=== PATIENT | male | born 1950 ===

== ENCOUNTER → 2024-03-08 14:56 | Outpatient (REF) | payer SELFPAY ==
[2024-03-08 19:17] LABS: % Basophils 0.7 % (0-2); % Eosinophils 3.8 % (0-6); % Immature Granulocytes 0.5 % (0-0.5); % Lymphocytes 39.3 % (20.5-51.1); % Monocytes 12.3 % (1.7-9.3); % Neutrophils 43.4 % (42.2-75.2); Absolute Eosinophils 0.2 10^3/uL (0-0.7); Absolute Lymphocytes 1.7 10^3/uL (1.2-3.4); Absolute Monocytes 0.5 10^3/uL (0.1-0.6); Absolute Neutrophils 1.8 10^3/uL (1.4-6.5); Hematocrit 33.5 % (39.0-52.0); Hemoglobin 10.9 g/dL (13.0-18.0); Mean Corp Hgb Conc. 32.5 g/dL (33.0-37.0); Mean Corpuscular Volume 98.2 fL (80.0-94.0); Mean Platelet Volume 10.2 fL (7.4-10.4); Nucleated Red Blood Cells % 0 % (-); Platelet Count 124 10^3/uL (130-400); Red Blood Cell Count 3.41 10^6/uL (4.70-6.10); Red Cell Dist. Width 15.1 % (11.5-14.5); White Blood Cell Count 4.2 10^3/uL (4.8-10.8)
[2024-03-08 19:25] LABS: Blood Urea Nitrogen 21 mg/dl (9-20); Calcium 8.5 mg/dl (8.4-10.2); Carbon Dioxide 29 mmol/L (22-30); Chloride 106 mmol/L (98-107); Glucose 76 mg/dl (70-99); HDL Cholesterol 41 mg/dl; LDL Cholesterol, Calculated 62 mg/dl; Sodium 138 mmol/L (135-145); Total Cholesterol 113 mg/dl (50-199); Triglyceride 52 mg/dl (10-149); Very Low Density Lipoprotein 10 mg/dl (0-30); eGFR > 60.00
[2024-03-08 19:33] LABS: Potassium 4.1 mmol/L (3.5-5.1)
[2024-03-08 19:42] LABS: Free T4 1.02 ng/dl (0.78-2.19); Vitamin D, 25-OH*** 30.1 ng/mL (30-80)
[2024-03-08 19:56] LABS: TSH 2.88 uIU/ml (0.47-4.68)
[2024-03-08 20:15] LABS: Vitamin B12 556 pg/ml (239-931)
[2024-03-09 08:20] LABS: Glycohemoglobin (HgbA1c) 4.8 % (4.0-5.6)
== END ==
LOC: OLABSOL 14:56
PROVIDERS: ATTENDING PHYSICIAN Nurse Practitioner Adult Health
DX: E55.9 Vitamin D deficiency, unspecified (principal); D55.9 Anemia due to enzyme disorder, unspecified; D11.9 Benign neoplasm of major salivary gland, unspecified; E03.9 Hypothyroidism, unspecified; D64.9 Anemia, unspecified; R94.4 Abnormal results of kidney function studies; E78.5 Hyperlipidemia, unspecified
CPT/HCPCS: 36415; 80048; 80061; 82306; 82607; 83036; 84439; 84443; 85025

== ENCOUNTER 2024-05-18 05:01 | Emergency (ER) | payer MEDICARE, SELFPAY ==
[2024-05-18 05:03] VITALS: BP 124/67; BMI 21.2
--- NOTE | 2024-05-18 06:35 | ED.GENMED ---
History of Present Illness
General
Chief Complaint: Fall
Source: patient and ambulance crew
Time Seen by Provider: 05/18/24 06:30
History of Present Illness
History of Present Illness:
74-year-old male presents to the emergency room from [facility] where he fell getting out of bed. He has an abrasion to the top of his head. Patient offers no complaints though he carries a diagnosis of dementia and does not appear to
recall the events of the morning.
Phy Exam
Physical Exam
Physical Exam:
General: Awake, Alert, Oriented to person. No acute distress.
Vitals: unremarkable
Head: Abrasion to the top of his scalp, no bleeding
Eyes: Pupils equal, EOMI
Throat: Airway intact, no exudates
Neck: Trachea midline, no midline tenderness to palpation
Lungs: Clear and equal b/l
Heart: Regular rate, no murmurs
Abd: Soft, Nontender, No pulsatile mass
Neuro: Nonfocal
Skin: Warm, dry, no rash
Extremities: pulses equal b/l, no edema, range of motion intact in all 4 extremities
Course
Orders/Labs/Results
Orders:
Orders
05/18/24 05:08
CT Head W/o Iv Contrast Urgent
Comment:
Reason For Exam: fall head strike
Vital Signs
Initial and Last Documented VS:
Initial Vital Signs
Temp Pulse Resp BP Pulse Ox
98.2 F 63 16 124/67 98
05/18/24 05:03 05/18/24 05:03 05/18/24 05:03 05/18/24 05:03 05/18/24 05:03
Last Documented Vital Signs
Temp Pulse Resp BP Pulse Ox
98.2 F 68 16 128/77 97
05/18/24 05:03 05/18/24 08:02 05/18/24 08:02 05/18/24 08:02 05/18/24 08:02
MDM/Problems Addressed
Differential Diagnosis Includes:
Contusion, abrasion, subdural
MDM/Problems Addressed:
CT shows no acute intracranial abnormalities. Patient appears stable and can be discharged back to his facility.
*Radiology
Radiology exam reviewed: radiology read reviewed (No acute abnormalities on vision report)
*Pulse Oximetry
Patient hypoxic: no
*Critical Care Note
Total Time (30-74mins, 75-104mins- exclusive of procedures): Not Applicable
ED Attending Note
-
Portions of this chart may have been created with voice recognition software.� Occasional wrong word or��sound alike� substitutions may have occurred due to the inherent limitations of voice recognition software.
Discharge Plan
Departure
Patient Disposition: Assisted Living
Date of Disposition: 05/18/24
Time of Disposition: 06:37
Condition: Good
Discharge Problem:
Head injury, Abrasion of scalp
Instructions: Head Injury in Adults (DC), Preventing falls in adults
Prescriptions:
No Action
valproic acid 500 mg Capsule,Delayed Release(Dr/Ec)
500 mg PO BID
Referrals:
Anders Woody, DO [Family Provider] -
Interventions
Interventions:
*Risk Screen - Suicide Last Done: 05/18/24 05:03
*General Assessment Last Done: 05/18/24 05:03
*Neglect/Abuse Screening Last Done: 05/18/24 05:03
*ED- Fall Risk Assessment Last Done: 05/18/24 06:59
*ED COVID-19 Vaccine History Last Done: 05/18/24 06:58
*Nursing Disposition Last Done: 05/18/24 06:59
ED-Musculoskeletal Assessment Last Done: 05/18/24 06:59
ED- Neurological Assessment Last Done: 05/18/24 06:58
ED-Skin Assessment Last Done: 05/18/24 06:59
Discharge Date and Time
Discharge Date/Time: 05/18/24 10:28
Print Language: IVORIAN
[2024-05-18 08:02] VITALS: BP 128/77
== END 2024-05-18 10:28 ==
LOC: EMR 05:01
PROVIDERS: EMERGENCY PHYSICIAN Emergency Medicine; FAMILY PHYSICIAN Internal Medicine
DX: S00.01XA Abrasion of scalp, initial encounter (principal); W06.XXXA Fall from bed, initial encounter; F03.90 Unspecified dementia, unspecified severity, without behavioral disturbance, psychotic disturbance, mood disturbance, and anxiety
CPT/HCPCS: 99284; 70450

== ENCOUNTER → 2024-11-03 11:46 | Outpatient (REF) | payer MEDICARE, SELFPAY ==
[2024-11-03 12:59] LABS: Hematocrit 31.3 % (39.0-52.0); Hemoglobin 10.7 g/dL (13.0-18.0); Mean Corp Hgb Conc. 34.2 g/dL (33.0-37.0); Mean Corpuscular Volume 94.8 fL (80.0-94.0); Nucleated Red Blood Cells % 0 % (-); Platelet Count 112 10^3/uL (130-400); Red Cell Dist. Width 12.5 % (11.5-14.5)
[2024-11-03 13:28] LABS: ALT (SGPT) 20 U/L (0-50); AST (SGOT) 23 U/L (17-59); Albumin 3.0 g/dl (3.5-5.0); Alkaline Phosphatase 46 U/L (38-126); Blood Urea Nitrogen 18 mg/dl (9-20); Calcium 9.1 mg/dl (8.4-10.2); Carbon Dioxide 27 mmol/L (22-30); Chloride 110 mmol/L (98-107); Glucose 79 mg/dl (70-99); HDL Cholesterol 45 mg/dl; LDL Cholesterol, Calculated 72 mg/dl; Magnesium 2.1 mg/dl (1.6-2.3); Potassium 4.0 mmol/L (3.5-5.1); Sodium 141 mmol/L (135-145); Total Protein 5.5 g/dl (6.3-8.2); Very Low Density Lipoprotein 12 mg/dl (0-30); eGFR > 60.00
[2024-11-03 13:29] LABS: Depakane 48.0 ug/ml (50.0-120.0)
[2024-11-03 13:57] LABS: TSH 3.29 uIU/ml (0.47-4.68)
[2024-11-03 14:22] LABS: Glycohemoglobin (HgbA1c) 4.7 % (4.0-5.6)
[2024-11-04 18:10] LABS: Urine Character Clear (Clear)
[2024-11-04 18:38] LABS: Urine Squamous Cell 0-2 /LPF (Few)
[2024-11-04 18:39] LABS: Urine Red Blood Cell 0-2 /HPF (0-2); Urine White Cell 0-2 /HPF (0-5)
== END ==
LOC: OLABSOL 11:46
PROVIDERS: ATTENDING PHYSICIAN Nurse Practitioner Adult Health
DX: R94.6 Abnormal results of thyroid function studies (principal); R89.2 Abnormal level of other drugs, medicaments and biological substances in specimens from other organs, systems and tissues; Z13.220 Encounter for screening for lipoid disorders; R73.09 Other abnormal glucose; Z13.228 Encounter for screening for other metabolic disorders; Z79.899 Other long term (current) drug therapy; N39.0 Urinary tract infection, site not specified
CPT/HCPCS: 36415; 80053; 80061; 80164; 81003; 81015; 83036; 83735; 84439; 84443; 85025; 87086

== ENCOUNTER 2025-02-08 16:45 | Inpatient (IN) | payer MEDICARE, SELFPAY ==
[2025-02-08] VITALS (9 sets, daily range): BP systolic 102–153; BP diastolic 54–76; BMI 21.6; BMI 21.4
--- NOTE | 2025-02-08 10:54 | ED.GENMED ---
History of Present Illness
General
Chief Complaint: Weakness
Time Seen by Provider: 02/08/25 10:44
History of Present Illness
History of Present Illness:
Patient presents to the emergency department with weakness, possible leaning to the right. Patient has a history of dementia and is not able to provide any reliable history. Per report, patient was seen around 8 AM and was leaning to his right.
He is able to adjust for this. He denies any pain anywhere. There is reports of a possible fall last night.
Phy Exam
Physical Exam
Physical Exam:
GENERAL APPEARANCE: NAD, well developed/ well nourished
EYES lids/conjunctiva normal
EARS/NOSE/THROAT Mucous membranes moist, uvula midline without oral pharyngeal erythema, exudate or swelling
HEAD/NECK normocephalic atraumatic, neck is supple. No cervical spine tenderness
RESPIRATORY respiratory effort normal, speaks in full sentences, no accessory muscle use. Lungs clear to auscultation without rhonchi, wheezes, rales
CARDIAC Regular rate and rhythm, no edema.
ABDOMINAL Soft, ND/NT.
MUSCLES/EXTREMITIES No abnormal range of motion, no swelling.
SKIN Warm, pink and dry. No rashes
NEUROLOGICAL oriented x 1, cranial nerves II through XII intact, 5 out of 5 strength in all extremities, sensation intact to light touch throughout, no dysmetria or ataxia.
Course
Orders/Labs/Results
Orders:
Orders
02/08/25 10:53
Electrocardiogram (*1) Urgent
Reason for Study: Other
Other Reason for Exam: sepsis
02/08/25 10:54
CT Head W/o Iv Contrast Urgent
Comment:
Reason For Exam: weakness
02/08/25 11:02
COVID-19 Antigen Urgent
Source: Nasal Swab
Comment: COVID AG
Complete Blood Count/With Diff Urgent
Comprehensive Metabolic Panel Urgent
Troponin I Urgent
Valproic Acid Level [Depakane] Urgent
Influenza A+B Rapid Molecular Urgent
BARBARA Source: Nasal Swab
Specimen Description:
02/08/25 11:48
PTT Routine
Prothrombin Time Routine
Urinalysis Reflex To Culture Urgent
Date Specimen was Collected: 02/08/25
Time Specimen was Collected: 11:26
Urine Microscopic Reflex Cult Urgent
Urine Culture Urgent
BARBARA Source: U
Specimen Description:
Date Specimen was Collected: 02/08/25
Time Specimen was Collected: 11:26
02/08/25 13:50
Portable Chest Xray [CR Chest Portable - 1 View] Urgent
Comment:
Reason For Exam: weakness
Reason Study Needs to be Portable: Unable to Transport
02/08/25 14:17
CefTRIAXone [Rocephin] 1,000 mg IV NOW STA
02/08/25 15:04
Admit/Transfer Patient As Directed
Co-Sign Provider:
Level of Care: Inpatient admission
Assign to:: Telemetry
Physician / Group: Hospitalist
Diagnosis: Weakness with fall
Reason for Telemetry: Syncope
Date to Stop Telemetry: 02/10/25
Time to Stop Telemetry: 11:00
Reason for Hospitalization: Weakness with fall
Expected length of stay greater than two midnights?: Yes
ELOS- Estimated Length of Stay in days: 3
I certify the patient meets the requirements for IP care: Yes
02/08/25 15:38
PRN Pain Medication Management As Directed
May give lesser potent ordered pain med per pt: Yes
preference::
Protocol:: Medication orders for pain may be administered in a
manner that supports deferring to patient preference
when the pt is:
- Requesting an ordered lesser potent pain medication.
Least to most potent pain medications are defined
as: acetaminophen < NSAID < tramadol < opioids
(morphine, oxycodone, hydromorphone).
- Requesting a lesser dose of the same medication IF
ORDERED.
- Requesting a less intrusive route of administration
if both routes are prescribed by the provider (PO <
IV).
02/08/25 15:42
Code Status As Directed
Resuscitation Status: Full Code
Physician note:: Patient's code status was NOT documented on the paper work that came with him in the ED. I
made multiple attempts (over 2 hours) to contact the [place] facility, the patient's son to
ascertain code status. However, I was unable to determine what is the patient's code status.
For that reason, we will designate full code and then reattempt to contact the facility and
update or confirm the code status accordingly.
02/10/25 11:00
DC Protocol for Telemetry ONCE
Abnormal Lab Results
02/08/25 02/08/25
11:02 11:48
WBC 15.8 H 10^3/uL
(4.8-10.8)
RBC 3.73 L 10^6/uL
(4.70-6.10)
Hgb 12.3 L g/dL
(13.0-18.0)
Hct 36.6 L %
(39.0-52.0)
MCV 98.1 H fL
(80.0-94.0)
MCH 33.0 H pg
(27.0-31.0)
Abs Immat Gran (auto) 0.1 H 10^3/uL
(0-0.05)
Absolute Neuts (auto) 13.0 H 10^3/uL
(1.4-6.5)
Absolute Lymphs (auto) 1.0 L 10^3/uL
(1.2-3.4)
Absolute Monos (auto) 1.8 H 10^3/uL
(0.1-0.6)
Neutrophils % 82.0 H %
(42.2-75.2)
Lymphocytes % 6.1 L %
(20.5-51.1)
Monocytes % 11.2 H %
(1.7-9.3)
Glucose 150 H mg/dl
(70-99)
Urine Ketones 1+ A
(Negative)
Ur Occult Blood Reflex 1+ A
(Negative)
Leukocyte Esterase Rfl 1+ A
(Negative)
Urine Bacteria (Reflex) Few A
(Negative)
Urine Albumin (Reflex) 2+ A
(Neg - Trace)
02/08/25 11:02
02/08/25 11:02
Vital Signs
Initial and Last Documented VS:
Initial Vital Signs
Temp Pulse Resp BP Pulse Ox
98.6 F 79 18 132/64 98
02/08/25 10:05 02/08/25 10:05 02/08/25 10:05 02/08/25 10:05 02/08/25 10:05
Last Documented Vital Signs
Temp Pulse Resp BP Pulse Ox
97.3 F 71 23 127/65 100
02/08/25 11:03 02/08/25 17:49 02/08/25 17:49 02/08/25 17:49 02/08/25 14:59
*Pulse Oximetry
SaO2: 98
Oxygen Mode of Delivery: Room air
Patient hypoxic: no
*Critical Care Note
Total Time (30-74mins, 75-104mins- exclusive of procedures): Not Applicable
ED Attending Note
ED Attending Note
ED Attending Note:
CT head negative for acute process. His NIH stroke score is 0 at this time, . Unknown last known well so patient not TNK candidate. Lab work showing leukocytosis, possible urinary source. Will check chest x-ray as well and treat with ceftriaxone.
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
WBC 15.8, afebrile
urine with leuks -- covering with CTX for possible UTI
CXR without infiltrate
admit for weakness, possible UTI, possible Stroke
-
Portions of this chart may have been created with voice recognition software.� Occasional wrong word or��sound alike� substitutions may have occurred due to the inherent limitations of voice recognition software.
Discharge Plan
Departure
Patient Disposition: Admit
Date of Disposition: 02/08/25
Time of Disposition: 14:19
Presentation/result/management discussed w/ accepting MD/DO: Hospitalist
Discharge Problem:
Weakness, Acute UTI
Interventions
Interventions:
*Risk Screen - Suicide Last Done: 02/08/25 10:05
*General Assessment Last Done: 02/08/25 10:05
*Neglect/Abuse Screening Last Done: 02/08/25 10:05
*ED- Fall Risk Assessment Last Done: 02/08/25 11:11
*ED COVID-19 Vaccine History Last Done: 02/08/25 10:05
*ED Influenza Vaccine History Last Done: 02/08/25 10:05
ED- Cardiac Assessment Last Done: 02/08/25 11:11
ED- Neurological Assessment Last Done: 02/08/25 11:11
ED- Pulmonary Assessment Last Done: 02/08/25 11:11
--- NOTE | 2025-02-08 10:59 | PHANOTE ---
MED REC NOTE- PATIENT MISSING INTERMEDIATE ORDER, CALLED FOR MEDICATION LIST TO BE FAXED OVER
[2025-02-08 11:21] LABS: Hematocrit 36.6 % (39.0-52.0); Hemoglobin 12.3 g/dL (13.0-18.0); Mean Corp Hgb Conc. 33.6 g/dL (33.0-37.0); Mean Corpuscular Volume 98.1 fL (80.0-94.0); Nucleated Red Blood Cells % 0 % (-); Platelet Count 140 10^3/uL (130-400); Red Cell Dist. Width 12.5 % (11.5-14.5)
[2025-02-08 11:32] LABS: ALT (SGPT) 20 U/L (0-50); AST (SGOT) 29 U/L (17-59); Albumin 3.7 g/dl (3.5-5.0); Alkaline Phosphatase 51 U/L (38-126); Blood Urea Nitrogen 14 mg/dl (9-20); Calcium 8.8 mg/dl (8.4-10.2); Carbon Dioxide 28 mmol/L (22-30); Chloride 104 mmol/L (98-107); Estimated Creatinine Clearance 77 ml/min; Glucose 150 mg/dl (70-99); Potassium 3.7 mmol/L (3.5-5.1); Sodium 138 mmol/L (135-145); Total Protein 6.5 g/dl (6.3-8.2); eGFR > 60.00
[2025-02-08 11:38] LABS: Troponin I < 0.012 ng/ml
[2025-02-08 11:43] LABS: COVID-19 Antigen Negative (Negative)
[2025-02-08 11:46] LABS: Depakane 60.5 ug/ml (50.0-120.0)
[2025-02-08 12:07] LABS: APTT 26.3 Sec (23.4-35.0); INR 1.09; PT 14.4 Sec (11.4-14.6)
[2025-02-08 12:36] LABS: Urine Character Clear (Clear)
[2025-02-08 12:56] LABS: Urine Red Blood Cell 0-2 /HPF (0-2); Urine Squamous Cell 0-2 /LPF (Few)
[2025-02-08] MEDS: ROCEPHIN 1000 MG IV (14:37)
--- NOTE | 2025-02-08 14:50 | W.PN.UPDATE ---
Update Note
Progress Note Update
74-year-old male with dementia, mood disorder, sleep disturbance that is presenting to the ED today from his assisted living center after being noticed by staff to have a rightward lean. History significantly limited by the patient's advanced
dementia. Was noted to be leaning to his right by staff at his living facility and around 8 AM this morning, possible fall yesterday evening. Patient denies pain in the ED. AFVSS on arrival. Labs with WBC 15.8 with neutrophil 82%, hemoglobin
12.3, glucose 150. Urinalysis with few bacteria, negative pyuria, no nitrites or leukocyte esterase. VPA level 60.5 mcg/mL below the threshold for toxicity. CT head showed moderate atrophy diffusely the stable from previous scans and moderate
leukomalacia of the left frontal lobe that is progressed from previous. CT without acute findings such as infarct or ICH. CXR without acute findings on my prelim read, final read pending. ECG with NSR and no ischemic findings, normal QTc. Viral
respiratory panel negative. Was given 1 dose of IV ceftriaxone in the ED after urine culture was obtained.
AO x 1-2, NAD, well-nourished. Benign cardiopulmonary and abdomen exam. No suprapubic discomfort or flank tenderness/CVA tenderness. No edema, no JVD, palpable pulses, no carotid bruits. Skin warm and dry without rash or jaundice. MMS and
sensation intact, CN grossly intact.
#Rightward lean. Differentials include vertiginous process, CVA, B12 deficiency, MSK injury, deconditioning. NIHSS low at this time. CT unremarkable. No obvious FND outside of his leaning, lower suspicion for CVA. Will obtain MRI brain without
contrast for completeness. Order PT/OT and consider vestibular therapy treatments. Monitor NIHSS and neurochecks. Check A1c, B12, and lipid panel for completeness. Monitor on telemetry for now. Consider neurology consult
#Leukocytosis. Unclear etiology, lower suspicion for infectious process at this time with negative UA and clear CXR. Cannot rule out reactive process with possible fall versus aspiration event with his advanced dementia. Received 1 dose of IV
ceftriaxone in the ED. Will hold off on further antibiotics for now and trend CBC and temperature curve. Aspiration precautions.
#Fall at facility. Was found on ground this morning with presumed fall. Renal function stable, will check CK level for completeness. Plan for IV fluids
Diet -- Regular
DVT -- Lovenox
Code -- To be confirmed with facility, Full code pending confirmation
I have personally evaluated the patient at the bedside in the ED. I will be admitting Wali Angela to telemetry. He he is at high risk for worsening morbidity due to potential cerebral ischemia and will require further testing with MRI and
intensive monitoring of his neurologic status as well as potential readjustment of his antilipid/antiplatelet therapy. I have discussed this case with the ED attending. I reviewed this case with the resident and agree with all documentation unless
otherwise specified.
Please see residents formal H&P for more detail once available
--- NOTE | 2025-02-08 16:41 | HPS.HSE ---
Family Physician
-
Family Physician: INTERVIEWE UNKNOWN - PT NOT
Chief Complaint
-
weakness, rightward lean, fall
History of Present Illness
74 yo M PMH Alzheimer's dementia, EtOH use disorder, Insomnia who is believed to have weakness (leaning to the right) and a presumed fall (from yesterday evening). Last known well is not known.
He was found leaning to his right at around 8am this morning. The patient is unable to provide a reliable history, and is coming from [facility] living.
When he presented to the ED,
VS: 98.6, BP 132/64, 98% on room air
Labs n/f WBC 15.8, Hgb 12.3
Electrolytes within normal limits: Na 138, K 3.7, Cr 0.8, BG 150
EKG NSR
Troponin < 0.012
Valproic acid level 60.5
UA noted few bacteria, 1+ leukocyte esterase
CT head noncontrast: no acute intracranial process but showed moderate atrophy and moderate malacia
CXR: unremarkable
Urine cultures are pending, and received ceftriaxone in the ED for a presumed UTI.
Medical History
Past Medical History
Past Medical History: Reports Dementia (Alzheimer's), Psychiatric (EtOH substance disorder) and Other (Insomnia; per chart, disorders of bilirubin metabolism)
Past Surgical History: Reports Other (Malignant melanoma (per chart))
Social History
Unable to obtain full social history at this time due to: Dementia
Family History
Family History: Unable to Obtain
Allergies / Home Medications
Allergies reflects when Allergies were last updated in [facility].
Home Medications with original date entered in [facility]
Allergy/Medication List:
Allergies
Allergy/AdvReac Type Severity Reaction Status Date / Time
No Known Allergies Allergy Verified 02/08/25 10:08
Home Medications
dimethicone 5 % topical cream 1 applic topical BID INCONTIENCE CARE 02/08/25
divalproex 500 mg tablet,delayed release 500 mg PO BID 02/08/25
melatonin 3 mg tablet 6 mg PO HS Sleep 02/08/25
olanzapine 2.5 mg tablet 2.5 mg PO HS Mental Health/Anxiety 02/08/25
Review of Systems
-
Unable to obtain full review of systems at this time due to: Dementia
Physical Exam
Vital Signs
Vital Signs
Temp Pulse Resp BP Pulse Ox
97.3 F 95 15 102/54 100
02/08/25 11:03 02/08/25 11:17 02/08/25 11:17 02/08/25 14:58 02/08/25 14:59
Physical Exam
General: Conversant
HEENT: NormoCephalic and Anicteric
Respiratory: Clear
Cardiac: Other (no murmurs on my exam)
GI: Soft, Non Tender, Non Distended and Normal Bowel Sounds
Musculoskeletal: Other (trace peripheral edema bilaterally)
Skin: Warm and Dry
Neuro: Awake, Alert and Other (AOx1, able to move 4 extremities and follow basic commands, conversant.)
Psych: Calm
Laboratory Results
-
02/08/25 11:02
02/08/25 11:02
Laboratory Results
PT 14.4 Sec (11.4-14.6) 02/08/25 11:48
INR 1.09 02/08/25 11:48
APTT 26.3 Sec (23.4-35.0) 02/08/25 11:48
Total Bilirubin 0.7 mg/dl (0.2-1.3) 02/08/25 11:02
AST 29 U/L (17-59) 02/08/25 11:02
ALT 20 U/L (0-50) 02/08/25 11:02
Alkaline Phosphatase 51 U/L (38-126) 02/08/25 11:02
Troponin I < 0.012 ng/ml 02/08/25 11:02
CT Head noncontrast 02/08/2025
IMPRESSION:
No CT evidence for acute intracranial abnormality.
Moderate atrophy which appears diffuse, and stable.
Moderate leukomalacia. There appears to be progression of leukomalacia in the left frontal lobe white matter compared to previous examination.
No convincing CT evidence for a focal area of acute to subacute infarction. If there remains high clinical concern for acute to subacute infarction and further imaging evaluation is desired, consideration for MRI, if there are no contraindications
CXR 02/08/2025
IMPRESSION:
No evidence of active cardiopulmonary disease.
UA: 1+ leukocyte esterase; 1+ occult blood, 6-10 WBC; 2+ albumin; few bacteria
Impression/Plan
-
In summary, 74 yo 74 yo M PMH Alzheimer's dementia, EtOH use disorder, Insomnia who is believed to have weakness and a presumed fall.
Weakness vs. leaning to the right vs. presyncope
- unclear etiology, and unknown HPI
- able to move all 4 extremities and follows basic commands
- ddx: CVA/TIA, musculoskeletal weakness, arrhythmia, dehydration among others
- cardiac exam benign, EKG NSR, no chart reported hx of an arrhythmia
- VS stable
Plan:
- will admit to telemetry
- although CT head noncontrast negative; and does not appear to be a CVA, MRI brain to evaluate for any process
- orthostatic vitals
- lipid panel, A1c
- consult PT/OT
- attempt to contact family for collateral
- attempt to contact facility for more information
Fall
- reported to have fallen yesterday evening
- Add on - CK to evaluate for rhabdomyolysis
Leukocytosis
- WBC 15.8, afebrile, and UA is not convincing for an infection
- CXR does not suggest respiratory infectious process
- likely reactive
Plan:
- f/u urine culture
- monitor CBC and VS
Code status: Full Code
Additional details regarding code status: patient's code status was NOT documented on the paper work he presented with. Over the course of 1.5-2 hours, I made multiple attempts to contact the son, Killian (@ [phone]) and multiple attempts to
reach someone at [facility] (@ [phone]) who could help. The son did not flower picker my calls, and the agents at [facility] were not able to connect me the appropriate personnel who could determine the patient's code status. For these reasons, a
full code is designated for now while we confirm.
DVTppx: enoxaparin
Diet: regular
--- NOTE | 2025-02-08 20:18 | PTCARENOTE ---
Pt received from ED to rm 424. Pt w/ 1:[address]
[2025-02-08] MEDS: NSS 1000 IV (21:36)
[2025-02-08] MEDS: LOVENOX 40 MG SC (21:36)
[2025-02-08] MEDS: MELATONIN 6 MG PO (21:37)
[2025-02-08] MEDS: DEPAKOTE (12 HR RELEASE) 500 MG PO (21:37)
[2025-02-08] MEDS: ZYPREXA 2.5 MG PO (21:37)
[2025-02-09] VITALS (8 sets, daily range): BP systolic 114–151; BP diastolic 55–83; PULSE 61–76
--- NOTE | 2025-02-09 01:44 | PTCARENOTE ---
Pt has been sleeping quietly without incident. 1:1 observation discontinued at this time. Bed alarm in place.
--- NOTE | 2025-02-09 07:17 | W.PN.HOSP.TC ---
Today's Communication/Plan
-
- MRI brain
- likely discharge today or tomorrow (CM aware)
Assessment / Plan
Assessment / Plan
In summary, 74 yo 74 yo M PMH Alzheimer's dementia, EtOH use disorder, Insomnia who is believed to have weakness and a presumed fall.
Weakness vs. leaning to the right vs. presyncope
- unclear etiology, and unknown HPI
- able to move all 4 extremities and follows basic commands
- ddx: CVA/TIA, musculoskeletal weakness, arrhythmia, dehydration among others
- cardiac exam benign, EKG NSR, no chart reported hx of an arrhythmia
- VS stable
Plan:
- will admit to telemetry
- although CT head noncontrast negative; and does not appear to be a CVA, MRI brain to evaluate for any process (today)
- lipid panel normal
- B12 normal
- A1c normal
- consulted PT/OT
- orthostatics negative
Elevated creatine kinase
Fall
- reported to have fallen yesterday evening
- CK 249 -> 187
- Fluids were started at 50cc/hr yesterday because doubtful on whether he would know to eat
- AST within normal limits; does not suggest rhabdomyolysis
- possible attributed to mechanical fall suggesting some degree of muscle trauma
- continue fluids
Leukocytosis
- WBC 4.9, resolved; afebrile
- likely reactive
Plan:
- f/u urine culture
Code status: Full Code
Additional details regarding code status: patient's code status was NOT documented on the paper work he presented with. Over the course of 1.5-2 hours, I made multiple attempts to contact the son, Killian (@ [phone]) and multiple attempts to
reach someone at [facility] (@ [phone]) who could help. The son did not belt picker my calls, and the agents at [facility] were not able to connect me the appropriate personnel who could determine the patient's code status. For these reasons, a
full code is designated for now while we confirm.
DVTppx: enoxaparin
Diet: regular
Anticipated Discharge: Within 24 hours
Subjective/Interval History
-
Date of Service: February 09, 2025
CK 249 from add on labs
nurse reports that patient is incontinent?
started on NS 50cc/hr fluids because unclear if he's eating
Objective Data
-
Labs:
Laboratory Results
02/09/25
06:53
WBC Pending
Hgb Pending
Hct Pending
Plt Count Pending
Sodium Pending
Potassium Pending
Chloride Pending
Carbon Dioxide Pending
BUN Pending
Creatinine Pending
Glucose Pending
Calcium Pending
WBC 8.3
CK 249 -> 182
otehr electrolytes within normal limits
A1c 4.7
b12 602
lipidpanel
LDL 71; total cholesterol 136
triglycerides 50
Vital Signs:
Vital Signs
Temp Pulse Resp BP Pulse Ox
97.8 F 69 18 151/83 100
02/09/25 03:06 02/09/25 03:06 02/09/25 03:06 02/09/25 03:06 02/09/25 03:06
Review of Systems
-
Unable to obtain full review of systems at this time due to: Dementia
Physical Exam
-
General: Conversant
HEENT: Normocephalic
Respiratory: Clear to Auscultation
Cardiac: Other (no murmurs on my exam)
GI: Nontender
Musculoskeletal: No Edema
Neuro: Awake and Alert
Psych: Calm
[2025-02-09 07:31] LABS: Hematocrit 32.3 % (39.0-52.0); Hemoglobin 10.9 g/dL (13.0-18.0); Mean Corp Hgb Conc. 33.7 g/dL (33.0-37.0); Mean Corpuscular Volume 95.6 fL (80.0-94.0); Platelet Count 112 10^3/uL (130-400); Red Cell Dist. Width 12.5 % (11.5-14.5)
[2025-02-09 08:02] LABS: Blood Urea Nitrogen 11 mg/dl (9-20); Calcium 8.5 mg/dl (8.4-10.2); Carbon Dioxide 30 mmol/L (22-30); Chloride 107 mmol/L (98-107); Estimated Creatinine Clearance 87 ml/min; Glucose 78 mg/dl (70-99); HDL Cholesterol 55 mg/dl; LDL Cholesterol, Calculated 71 mg/dl; Potassium 3.7 mmol/L (3.5-5.1); Sodium 139 mmol/L (135-145); Very Low Density Lipoprotein 10 mg/dl (0-30); eGFR > 60.00
[2025-02-09 08:22] LABS: Glycohemoglobin (HgbA1c) 4.7 % (4.0-5.9)
[2025-02-09 08:55] LABS: Vitamin B12 602 pg/ml (239-931)
[2025-02-09] MEDS: DEPAKOTE (12 HR RELEASE) 500 MG PO ×2 (09:43→19:42)
--- NOTE | 2025-02-09 11:26 | CM ---
Patient w/ dementia, spoke w/ Corina/Ullink tech at [facility]. Initial assessment completed. Patient is a 74 yo M PMH Alzheimer's dementia, EtOH use disorder, Insomnia who is believed to have weakness (leaning to the right) and a presumed fall (from
yesterday evening).
Patient resides at [facility] in memory care. Patient is independent w/ mobility, no device required. Per Corina, patient is total care for ADLs. Patient is AOx1 at baseline. No therapy at this time.
PCP: Samia Hodges
Pharmacy: [facility]
PT- home PT recommendation
Per alan LAST d/c today or tomorrow pending MRI. Updated Corina
Cristóbal referral completed in [facility]
Cristóbal PT

Plan: Return to [facility] w/ Cristóbal
[2025-02-09] MEDS: LOVENOX 40 MG SC (18:02)
[2025-02-09] MEDS: NSS 1000 IV (18:05)
[2025-02-09] MEDS: MELATONIN 6 MG PO (19:42)
[2025-02-09] MEDS: ZYPREXA 2.5 MG PO (19:42)
[2025-02-10 03:05] VITALS: BP 101/55
[2025-02-10 06:12] LABS: Hematocrit 30.9 % (39.0-52.0); Hemoglobin 10.7 g/dL (13.0-18.0); Mean Corp Hgb Conc. 34.6 g/dL (33.0-37.0); Mean Corpuscular Volume 97.2 fL (80.0-94.0); Platelet Count 118 10^3/uL (130-400); Red Cell Dist. Width 12.3 % (11.5-14.5)
[2025-02-10 06:36] LABS: Blood Urea Nitrogen 15 mg/dl (9-20); Calcium 8.4 mg/dl (8.4-10.2); Carbon Dioxide 31 mmol/L (22-30); Chloride 107 mmol/L (98-107); Estimated Creatinine Clearance 76 ml/min; Glucose 77 mg/dl (70-99); Potassium 3.8 mmol/L (3.5-5.1); Sodium 138 mmol/L (135-145); eGFR > 60.00
[2025-02-10 07:00] VITALS: BP 124/65
--- NOTE | 2025-02-10 07:16 | W.PN.HOSP.TC ---
Today's Communication/Plan
-
discharge today
Assessment / Plan
Assessment / Plan
In summary, 74 yo 74 yo M PMH Alzheimer's dementia, EtOH use disorder, Insomnia who is believed to have weakness and a presumed fall.
Weakness vs. leaning to the right vs. presyncope
- unclear etiology, and unknown HPI
- able to move all 4 extremities and follows basic commands
- ddx: CVA/TIA, musculoskeletal weakness, arrhythmia, dehydration among others
- cardiac exam benign, EKG NSR, no chart reported hx of an arrhythmia
- VS stable
Plan:
- will admit to telemetry
- lipid panel normal
- B12 normal
- A1c normal
- consulted PT/OT
- orthostatics negative
- MRI brain showed Alzheimer's disease, negative for infarct.
- okay for discharge today
Elevated creatine kinase
Fall
- reported to have fallen yesterday evening
- CK 249 -> 187
- Fluids were started at 50cc/hr yesterday because doubtful on whether he would know to eat
- AST within normal limits; does not suggest rhabdomyolysis
- possible attributed to mechanical fall suggesting some degree of muscle trauma
- continue fluids
Leukocytosis
- WBC 5.6 resolved; afebrile
- likely reactive
- urine culture no growth
Code status: Full Code
I spoke with [facility] on 02/10/2025 at approximately 11:50AM, and they confirmed that this patient is Full Code.
DVTppx: enoxaparin
Diet: regular
Anticipated Discharge: Today
Subjective/Interval History
-
Date of Service: February 10, 2025
sleeping, nurse reports that he was quite agitated overnight
completed abdominal x-ray and MRI brain this morning
Objective Data
-
Labs:
Laboratory Results
02/10/25
05:37
WBC 5.6
Hgb 10.7 L
Hct 30.9 L
Plt Count 118 L
Sodium 138
Potassium 3.8
Chloride 107
Carbon Dioxide 31 H
BUN 15
Creatinine 0.8
Glucose 77
Calcium 8.4
Abdominal x-ray 02/10/2025
IMPRESSION:
1. No radiographic evidence for metal foreign body in abdomen or pelvis.
2. No radiographic evidence for bowel obstruction.
3. Cholelithiasis.
Brain MRI complete 02/10/2025
IMPRESSION:
1. Moderate to severe bilateral temporal lobe volume loss consistent with ALZHEIMER'S DEMENTIA.
2. SEVERE WHITE MATTER LEUKOARAIOSIS in the frontal and parietal lobes.
3. No MRI evidence for acute infarct or intracranial hemorrhage.
4. Severe facet joint arthrosis at C3/C4.
Vital Signs:
Vital Signs
Temp Pulse Resp BP Pulse Ox
97.4 F 55 18 101/55 98
02/10/25 03:05 02/10/25 03:05 02/10/25 03:05 02/10/25 03:05 02/10/25 03:05
bradycardic
I&O
02/09/25 02/10/25 02/11/25
06:59 06:59 06:59
Intake Total 420 / 420
Output Total 125 / 125
Balance 295 / 295
Review of Systems
-
Unable to obtain full review of systems at this time due to: Dementia
Physical Exam
-
General: Conversant
HEENT: Normocephalic
Respiratory: Clear to Auscultation
Cardiac: Other (no murmurs on my exam)
GI: Nontender
Musculoskeletal: No Edema
Neuro: Other (sleeping but easily arousable)
Psych: Calm
[2025-02-10] MEDS: NSS IV (07:37)
[2025-02-10] MEDS: DEPAKOTE (12 HR RELEASE) 500 MG PO (07:37)
--- NOTE | 2025-02-10 10:27 | CM ---
Chart reviewed. MRI negative
Per PA, patient is medically stable to return to [facility]
CM placed call to [facility], was unable to speak w/ a med tech and nursing is not there. Left message w/ [employer] tech, however, CM spoke w/ a med tech yesterday informing of potential d/c today.
Attempted call to patient's son, Killian, left message
Patient will need ambulance transport
[facility] will follow for PT
[facility]
Report: [phone]

[facility]

Plan: Return to [facility] w/ [facility]
--- NOTE | 2025-02-10 11:55 | W.DCSUMMARY ---
Documented by User: Marlon Trivedi MD, Resident 02/10/25 12:21
Discharge Summary
Discharge Data
Date of Admission: 02/08/25
Date of Discharge: 02/10/25
-
Pending Results: No
Hospital Course
Discharging Physician : Dr. Ramón Riddle; Dr. Marlon Trivedi
Disposition : SNF
Principal Discharge diagnosis : Weakness, rightward lean
Chronic Discharge diagnosis : Dementia (Alzheimer's), Psychiatric (EtOH substance disorder) and Other (Insomnia; per chart, disorders of bilirubin metabolism); Malignant melanoma (per chart)
Hospital Course :
74 yo M PMH Alzheimer's dementia, EtOH use disorder, Insomnia who is believed to have weakness (leaning to the right) and a presumed fall on 02/07 or 02/08/2025. Last known well is not known. He was found leaning to his right at around 8am morning
of 02/08/2025. The patient is unable to provide a reliable history, and is coming from [facility]. In the ED, CT Head noncontrast was negative for bleed. CXR was unremarkable. MRI brain was negative for infarct but showed severe white
matter leukoaraiosis and volume loss c/w Alzheimer's dementia. He received an abdominal x-ray prior to the scan for MRI clearance.
The following problems were addressed during this admission:
Rightward lean/weakness
- unclear etiology, and unknown HPI
- able to move all 4 extremities and follows basic commands
- ddx: CVA/TIA, musculoskeletal weakness, arrhythmia, dehydration among others
- cardiac exam benign, EKG NSR, no chart reported hx of an arrhythmia
- VS stable
Plan:
- Labs were largely unremarkable: lipid panel, B12, A1c all within normal limits
- Orthostatics were negative
- MRI showed Alzheimer's dementia and severe white matter leukoaraiosis, but negative for acute infarct
Elevated creatine kinase
Fall
- reported to have fallen prior to presentation
- CK is improving, likely attributed to some degree of muscle traama from fall.
- Creatinine was within normal limits
Leukocytosis - resolved
- likely reactive
- urine culture no growth
Important imaging findings :
CT Head noncontrast 02/08/2025
IMPRESSION:
No CT evidence for acute intracranial abnormality.
Moderate atrophy which appears diffuse, and stable.
Moderate leukomalacia. There appears to be progression of leukomalacia in the left frontal lobe white matter compared to previous examination.
No convincing CT evidence for a focal area of acute to subacute infarction. If there remains high clinical concern for acute to subacute infarction and further imaging evaluation is desired, consideration for MRI, if there are no contraindications
CXR 02/08/2025
IMPRESSION:
No evidence of active cardiopulmonary disease.
Abdominal x-ray 02/10/2025
IMPRESSION:
1. No radiographic evidence for metal foreign body in abdomen or pelvis.
2. No radiographic evidence for bowel obstruction.
3. Cholelithiasis.
Brain MRI complete 02/10/2025
IMPRESSION:
1. Moderate to severe bilateral temporal lobe volume loss consistent with ALZHEIMER'S DEMENTIA.
2. SEVERE WHITE MATTER LEUKOARAIOSIS in the frontal and parietal lobes.
3. No MRI evidence for acute infarct or intracranial hemorrhage.
4. Severe facet joint arthrosis at C3/C4.
Procedure findings :
EKG 02/08/2025 10:53am
Vent. Rate : 67 BPM Atrial Rate : 67 BPM
P-R Int : 118 ms QRS Dur : 88 ms
QT Int : 398 ms P-R-T Axes : 42 66 63 degrees
QTcB Int : 420 ms
NORMAL SINUS RHYTHM
NORMAL ECG
Discharge Plan
-
Patient Disposition: Group Home/SNF
Discharge Diagnosis/Procedures: Leaning to the right side (noticed by staff, possible vertigo)
Unwitnessed fall
Leukocytosis with negative infectious work
Negative MRI for signs of stroke
Advanced Alzheimer's dementia
Condition: Fair
Diet: As tolerated
Activity: As tolerated
Driving Restrictions: No driving
Bathing Restrictions: None
Blood Work: BMP, magnesium level, CBC with differential in 7 days
Other Services: PT and OT
Referrals:
UNKNOWN - PT NOT,INTERVIEWE [Family Provider]
Prescriptions:
Continued
melatonin 3 mg Tablet
6 mg PO HS
divalproex 500 mg Tablet,Delayed Release (Dr/Ec)
500 mg PO BID
olanzapine 2.5 mg Tablet
2.5 mg PO HS
dimethicone 5 % Cream
1 applic TOPICAL BID
Discharge Orders:
Discharge Patient (As Directed); Ordered 02/10/25
Ordered By: Marlon Trivedi
Discharge Date and Time
Print Language: GUATEMALAN

Documented by User: Ramón Riddle DO 02/10/25 12:22
Discharge Summary
Discharge Data
Date of Admission: 02/08/25
Date of Discharge: 02/10/25
Total time spent discharging patient (in min): 34
Discharge Plan
-
Patient Disposition: Group Home/SNF
Discharge Diagnosis/Procedures: Leaning to the right side (noticed by staff, possible vertigo)
Unwitnessed fall
Leukocytosis with negative infectious work
Negative MRI for signs of stroke
Advanced Alzheimer's dementia
Condition: Fair
Diet: As tolerated
Activity: As tolerated
Driving Restrictions: No driving
Bathing Restrictions: None
Blood Work: BMP, magnesium level, CBC with differential in 7 days
Other Services: PT and OT
Referrals:
UNKNOWN - PT NOT,INTERVIEWE [Family Provider]
Prescriptions:
Continued
melatonin 3 mg Tablet
6 mg PO HS
divalproex 500 mg Tablet,Delayed Release (Dr/Ec)
500 mg PO BID
olanzapine 2.5 mg Tablet
2.5 mg PO HS
dimethicone 5 % Cream
1 applic TOPICAL BID
Discharge Orders:
Discharge Patient (As Directed); Ordered 02/10/25
Ordered By: Marlon Trivedi
Discharge Date and Time
Print Language: GUATEMALAN
[2025-02-10 12:30] VITALS: BP 142/84
== END 2025-02-10 13:56 | disposition home health service (06) | DRG 948 ==
LOC: 4 WEST ACU 16:45
PROVIDERS: ADMITTING PHYSICIAN Internal Medicine; EMERGENCY PHYSICIAN Emergency Medicine
DX: R53.1 Weakness (principal); F02.818 Dementia in other diseases classified elsewhere, unspecified severity, with other behavioral disturbance; G30.9 Alzheimer's disease, unspecified; G47.09 Other insomnia; Z85.820 Personal history of malignant melanoma of skin; K80.20 Calculus of gallbladder without cholecystitis without obstruction; M47.812 Spondylosis without myelopathy or radiculopathy, cervical region; Z11.52 Encounter for screening for COVID-19
CPT/HCPCS: 51701; 70450; 70551; 71045; 74018; 80048; 80053; 80061; 80164; 81003; 81015; 82550; 82607; 83036; 84484; 85025; 85027; 85610; 85730; 87070; 87086; 87502; 87811; 93005; 96374; 97163; 97166; 99285

== ENCOUNTER → 2025-02-16 09:30 | Outpatient (REF) | payer MEDICARE, SELFPAY ==
[2025-02-16 10:31] LABS: Hematocrit 32.1 % (39.0-52.0); Hemoglobin 10.8 g/dL (13.0-18.0); Mean Corp Hgb Conc. 33.6 g/dL (33.0-37.0); Mean Corpuscular Volume 96.4 fL (80.0-94.0); Nucleated Red Blood Cells % 0 % (-); Platelet Count 129 10^3/uL (130-400); Red Cell Dist. Width 12.5 % (11.5-14.5)
[2025-02-16 10:49] LABS: Blood Urea Nitrogen 14 mg/dl (9-20); Calcium 8.4 mg/dl (8.4-10.2); Carbon Dioxide 31 mmol/L (22-30); Chloride 106 mmol/L (98-107); Glucose 76 mg/dl (70-99); Magnesium 2.1 mg/dl (1.6-2.3); Potassium 3.8 mmol/L (3.5-5.1); Sodium 138 mmol/L (135-145); eGFR > 60.00
== END ==
LOC: OLABSOL 09:30
PROVIDERS: ATTENDING PHYSICIAN Nurse Practitioner Adult Health
DX: G30.0 Alzheimer's disease with early onset (principal); R53.1 Weakness
CPT/HCPCS: 36415; 80048; 83735; 85025

== ENCOUNTER → 2025-02-18 11:27 | Outpatient (REF) | payer MEDICARE, SELFPAY ==
[2025-02-18 11:57] LABS: Hematocrit 31.1 % (39.0-52.0); Hemoglobin 10.5 g/dL (13.0-18.0); Mean Corp Hgb Conc. 33.8 g/dL (33.0-37.0); Mean Corpuscular Volume 97.2 fL (80.0-94.0); Nucleated Red Blood Cells % 0 % (-); Platelet Count 133 10^3/uL (130-400); Red Cell Dist. Width 12.4 % (11.5-14.5)
[2025-02-18 12:00] LABS: Blood Urea Nitrogen 15 mg/dl (9-20); Calcium 8.2 mg/dl (8.4-10.2); Carbon Dioxide 32 mmol/L (22-30); Chloride 107 mmol/L (98-107); Glucose 75 mg/dl (70-99); Magnesium 2.1 mg/dl (1.6-2.3); Potassium 4.3 mmol/L (3.5-5.1); Sodium 138 mmol/L (135-145); eGFR > 60.00
== END ==
LOC: OLABSOL 11:27
PROVIDERS: ATTENDING PHYSICIAN Nurse Practitioner Adult Health
DX: G70.00 Myasthenia gravis without (acute) exacerbation (principal); R79.89 Other specified abnormal findings of blood chemistry; D64.9 Anemia, unspecified
CPT/HCPCS: 36415; 80048; 83735; 85025